=== PATIENT | male | born 1955 | race Caucasian/White ===

== ENCOUNTER → 2019-05-16 14:28 | Outpatient (CLI) | payer OTHER, SELFPAY ==
[2019-05-16 15:02] LABS: Add Manual Diff / Slide Review NO; Basophils Absolute Auto 100 /uL (0-100); Basophils Percent Auto 0.8 % (0-2); Eosinophils Absolute Auto 200 /uL (0-450); Eosinophils Percent Auto 3.4 % (2-4); Hematocrit 41.5 % (41-53); Lymphocytes Absolute Auto 1500 /uL (1100-4500); Lymphocytes Percent Auto 23.4 % (25-40); Mean Corpuscular HGB Conc 33.8 % (30-36); Mean Corpuscular Hemoglobin 30.5 PG (26-34); Mean Corpuscular Volume 90.4 fL (80-100); Monocytes Absolute Auto 300 /uL (0-900); Monocytes Percent Auto 4.8 % (3-14); Neutrophils Absolute Auto 4200 /uL (1500-7000); Neutrophils Percent Auto 67.6 % (50-75); Platelet Count 161 X10^3/uL (150-400); Red Blood Cell Count 4.59 X10^6/uL (4.5-5.9); Red Cell Distribution Width 12.9 % (11.6-14.8); White Blood Cell Count 6.3 X10^3/uL (4.5-11.0)
[2019-05-16 15:56] LABS: Alanine Aminotransferase 21 IU/L (<50); Albumin 4.5 g/dL (3.5-5.0); Albumin Globulin Ratio 1.7 (1.0-2.8); Alkaline Phosphatase 60 U/L (38-126); Aspartate Aminotransferase 22 IU/L (17-59); BUN Creatinine Ratio 12.5 (6-22); Bilirubin Total 0.4 mg/dL (0.2-1.3); Blood Urea Nitrogen 10 mg/dL (9-20); Calcium 9.8 mg/dL (8.4-10.2); Carbon Dioxide 25 mmol/L (22-32); Chloride 105 mmol/L (98-107); Cholesterol 181 mg/dL (140-199); Creatine Kinase 67 U/L (55-170); Estimated Glomerular Filt Rate > 60.0 mL/min (>60); Globulin 2.6 g/dL (1.7-4.1); Glucose 112 mg/dL (80-110); HDL Cholesterol 32 mg/dL (40-60); HEMOLYSIS < 15 (0-50); LDL Cholesterol Calculated 115 mg/dL (<100); Potassium 4.3 mmol/L (3.4-5.1); Sodium 141 mmol/L (137-145); Total Protein 7.1 g/dL (6.3-8.2); Triglycerides 170 mg/dL (35-150)
[2019-05-16 16:13] LABS: Vitamin D 25 Hydroxy (D3) 44.6 ng/mL (30.0-100.0)
[2019-05-16 16:26] LABS: Prostate Specific Antigen Scrn 0.514 ng/mL (0.1-4.0)
[2019-05-16 16:27] LABS: TSH w/ Reflex to FT4 0.94 uIU/mL (0.47-4.68)
== END ==
PROVIDERS: PCP Student in an Organized Health Care Education/Training Program; Visit Provider Student in an Organized Health Care Education/Training Program
DX: Z12.5 Encounter for screening for malignant neoplasm of prostate (principal); E78.2 Mixed hyperlipidemia; I25.10 Atherosclerotic heart disease of native coronary artery without angina pectoris; R53.1 Weakness; E55.9 Vitamin D deficiency, unspecified; Z79.899 Other long term (current) drug therapy
CPT/HCPCS: 36415; 80053; 80061; 82306; 82550; 84443; 85025; G0103

== ENCOUNTER → 2020-03-13 14:37 | Outpatient (CLI) | payer OTHER, SELFPAY ==
[2020-03-13 16:05] LABS: Blood Urea Nitrogen 16 mg/dL (9-20); Calcium 9.8 mg/dL (8.4-10.2); Carbon Dioxide 30 mmol/L (22-32); Chloride 102 mmol/L (98-107); Estimated Glomerular Filt Rate > 60.0 mL/min (>60); Glucose 96 mg/dL (80-110); HEMOLYSIS < 15 (0-50); Potassium 5.1 mmol/L (3.4-5.1); Sodium 139 mmol/L (137-145)
== END ==
PROVIDERS: PCP Student in an Organized Health Care Education/Training Program; Referring Provider Student in an Organized Health Care Education/Training Program; Visit Provider Student in an Organized Health Care Education/Training Program
DX: I10 Essential (primary) hypertension (principal)
CPT/HCPCS: 36415; 80048

== ENCOUNTER → 2020-12-09 09:30 | Outpatient (CLI) | payer OTHER, SELFPAY ==
[2020-12-09 10:11] LABS: BUN Creatinine Ratio 18.9 (6-22); Blood Urea Nitrogen 14 mg/dL (9-20); Calcium 9.9 mg/dL (8.4-10.2); Carbon Dioxide 26 mmol/L (22-32); Chloride 105 mmol/L (98-107); Estimated Glomerular Filt Rate > 60.0 mL/min (>60); Glucose 117 mg/dL (80-110); HEMOLYSIS < 15 (0-50); Potassium 4.4 mmol/L (3.4-5.1); Sodium 138 mmol/L (137-145)
[2020-12-09 10:39] LABS: Prostate Specific Antigen Scrn 0.596 ng/mL (0.1-4.0)
== END ==
PROVIDERS: PCP Student in an Organized Health Care Education/Training Program; Referring Provider Student in an Organized Health Care Education/Training Program; Visit Provider Student in an Organized Health Care Education/Training Program
DX: I10 Essential (primary) hypertension (principal); Z12.5 Encounter for screening for malignant neoplasm of prostate
CPT/HCPCS: 36415; 80048; G0103

== ENCOUNTER → 2021-01-21 08:44 | Outpatient (CLI) | payer OTHER, SELFPAY ==
[2021-01-21 11:46] LABS: COVID19 -Nasal RAPID Negative (Negative)
== END ==
PROVIDERS: PCP Student in an Organized Health Care Education/Training Program; Referring Provider Specialist; Visit Provider Specialist
DX: Z01.812 Encounter for preprocedural laboratory examination (principal); Z20.822 Contact with and (suspected) exposure to COVID-19
CPT/HCPCS: 87635; C9803

== ENCOUNTER 2021-01-22 08:43 | Day surgery (SDC) | payer OTHER, SELFPAY ==
[2021-01-22] MEDS: LACTATED RINGERS 1,000 ML 200 ML IV (09:00)
[2021-01-22 09:33] VITALS: BP 156/95; PULSE 58; RESP 20; TEMP 36.4; O2SAT 98; BMI 33.9
--- NOTE | 2021-01-22 10:08 | PM.HP.1 ---
History of Present Illness History of Present Illness Chief complaint: [facility] [place] Narrative: Patient is a gentleman here for screening colonoscopy. His last exam was about 10 years ago. Patient History Medical History Cataracts, bilateral (~2014) Decreased financial planning analyst strength Depression (~1987) Hearing loss Hypertension (~1992) Osteoarthritis (~1974) Sleep apnea (~2017) Vision disorder Surgical History Anesthesia History of knee replacement (~1994) Status post appendectomy (~2017) Status post double vessel coronary artery bypass (~1992) Family & Social History Family History Father Hypertension Grandmother Heart disease Mother Hypertension Mental health problem Grandmother Heart disease Sister Age: 54 Hypertension Sister Diabetes mellitus Mental health problem Social History: household members spouse Tobacco & Substance use: Smoking Status Former smoker alcohol intake frequency 0-2 drinks per day Substance Use Type marijuana Meds Home Medications and Allergies Home Medications Medication Instructions Recorded Confirmed Type aspirin 325 mg tablet 325 mg PO DAILY 03/13/20 01/22/21 History lisinopril 20 mg tablet 20 mg PO DAILY #90 tab 04/02/20 01/22/21 Rx metoprolol tartrate 100 mg tablet 100 mg PO BID #180 tab 04/14/20 01/22/21 Rx simvastatin 20 mg tablet 20 mg PO BEDTIME #90 tab 04/14/20 01/22/21 Rx sertraline 100 mg tablet 100 mg PO DAILY #90 tab 11/10/20 01/22/21 Rx Allergies Allergy/AdvReac Type Severity Reaction Status Date / Time No Known Drug Allergies Allergy Unverified 12/09/20 09:08 Review of Systems Review of Systems Narrative: Patient has a history of angina but since his operation in 1992 that has ceased. He had a heart attack at that time but nothing since. He has no cough cold or asthma. He has no black or bloody bowel movements. No seizures or blackouts. Exam Vital Signs (past 8 hours): - 01/22/21 09:33 Temperature 97.6 F Pulse Rate 58 L Respiratory Rate 20 Blood Pressure 156/95 H Pulse Oximetry 98 Oxygen Delivery Method Room Air Narrative Exam Narrative: Pleasant cooperative patient no apparent distress. Lungs are clear to auscultation. No rales or rhonchi. Heart regular rate and rhythm no murmur gallop. Abdomen is soft nontender without mass. No obvious hernias. Patient is alert and oriented x3. Assessment & Plan Assessment and plan (1) Screening for colon cancer: Status: Acute Assessment & Plan narrative: Patient is here for screening exam. I have discussed the procedure and the rationale with the patient including risks of bleeding, perforation which would necessitate a major operation, failure to find remove all lesions and the potential to tattoo. He appeared to understand and wished to proceed. Time Spent With Patient Critical Care time: I spent a total of [] minutes of critical care time on this patient's care today; this time is exclusive of procedural time.
--- NOTE | 2021-01-22 10:11 | PM.PREOP ---
Pre-operative Note COVID-19 COVID-19 status: Negative Result date/Date tested (Pos, Neg/Pending): 01/21/21 Interval Note History & Physical reviewed/Exam performed by Physician: Yes Changes to H&P: No ASA Class (for procedural sedation): II
--- NOTE | 2021-01-22 11:13 | PM.OP.ENDO ---
Operative Date/Time/Diagnoses Date of procedure: 01/22/21 Time of procedure: 11:14 Pre-op diagnosis: Screening examination. Last exam about 10 years ago. Post-op diagnosis: same Procedure & Clinicians Study performed: Colonoscopy Same procedure as scheduled: Yes Indications: Screening for colon cancer Surgeon: Markie Breen Procedure Notes SCOAP/Timeout: Performed Procedure in detail: The patient was placed in the left lateral decubitus position and underwent IV sedation directed by the surgeon consisting of fentanyl and Versed. Digital exam was unremarkable. Prostate normal in size. I did feel any masses. The scope was inserted and advanced through the rectum into the sigmoid, descending, transverse, and ascending colon. Patient had sigmoid diverticulosis. The cecum was reached identified by the ileocecal valve and the appendiceal opening. The ileocecal valve was successfully cannulated. The terminal ileum was normal in appearance. The scope was gradually brought out. No Polyps were found. The scope ultimately was retroflexed in the rectum. The appearance was normal in appearance except for some small internal hemorrhoids. The scope was removed and the patient tolerated the procedure well. The prep was good. Scope withdrawal time: Timer not working Sedation minutes: 22 Findings: diverticulosis Specimen(s): none sent Complications: none Post-procedure Recommendations: Colonscopy in 10 years Follow up: as needed Disposition: PACU
[2021-01-22] MEDS: MIDAZOLAM 5 MG/5 ML VIAL IV (11:14)
[2021-01-22] MEDS: fentaNYL 250 MCG/5 ML INJ IV (11:15)
[2021-01-22 11:18] VITALS: BP 148/81; PULSE 62; RESP 10; TEMP 36; O2SAT 95
[2021-01-22 11:22] VITALS: BP 132/79; PULSE 57; RESP 97; O2SAT 16
[2021-01-22 11:27] VITALS: BP 121/81; PULSE 55; RESP 12; TEMP 36.1; O2SAT 98
[2021-01-22 11:41] VITALS: BP 129/82; PULSE 63; RESP 16; TEMP 36.4; O2SAT 96
--- NOTE | 2021-01-22 15:02 | SUR.PHASEII ---
Late entry: Pt left when ready and left in stable condition.
== END 2021-01-22 11:55 | disposition home or self-care (01) ==
PROVIDERS: PCP Student in an Organized Health Care Education/Training Program; Referring Provider Specialist; Visit Provider Specialist
PROC: 0DJD8ZZ Inspection of Lower Intestinal Tract, Via Natural or Artificial Opening Endoscopic (ICD-10-PCS; CPT 45378; principal; 2021-01-22 10:00)
DX: Z12.11 Encounter for screening for malignant neoplasm of colon (principal); K57.30 Diverticulosis of large intestine without perforation or abscess without bleeding
CPT/HCPCS: 45378; 99152; J2250; J3010

== ENCOUNTER → 2021-09-09 12:46 | Outpatient (CLI) | payer MEDICARE, OTHER, SELFPAY ==
[2021-09-09 14:10] LABS: BUN Creatinine Ratio 10.1 (6-22); Blood Urea Nitrogen 9 mg/dL (9-20); Calcium 9.7 mg/dL (8.4-10.2); Carbon Dioxide 33 mmol/L (22-32); Chloride 101 mmol/L (98-107); Estimated Glomerular Filt Rate > 60 mL/min (>60); Glucose 115 mg/dL (80-110); HEMOLYSIS < 15 (0-50); Potassium 4.6 mmol/L (3.4-5.1); Sodium 139 mmol/L (137-145)
== END ==
PROVIDERS: PCP Student in an Organized Health Care Education/Training Program; Referring Provider Student in an Organized Health Care Education/Training Program; Visit Provider Student in an Organized Health Care Education/Training Program
DX: I10 Essential (primary) hypertension (principal)
CPT/HCPCS: 36415; 80048

== ENCOUNTER → 2022-04-08 11:11 | Outpatient (CLI) | payer MEDICARE, SELFPAY ==
[2022-04-08 12:47] LABS: Add Manual Diff / Slide Review NO; Basophils Absolute Auto 100 /uL (0-100); Basophils Percent Auto 0.7 % (0-2); Eosinophils Absolute Auto 300 /uL (0-450); Eosinophils Percent Auto 4.4 % (2-4); Hematocrit 40.6 % (41-53); Hemoglobin 13.6 g/dL (13.5-17.5); Lymphocytes Absolute Auto 1700 /uL (1100-4500); Mean Corpuscular HGB Conc 33.6 % (30-36); Mean Corpuscular Hemoglobin 31.1 PG (26-34); Mean Corpuscular Volume 92.7 fL (80-100); Monocytes Absolute Auto 600 /uL (0-900); Monocytes Percent Auto 7.2 % (3-14); Neutrophils Absolute Auto 5100 /uL (1500-7000); Neutrophils Percent Auto 65.7 % (50-75); Platelet Count 173 X10^3/uL (150-400); Red Blood Cell Count 4.38 X10^6/uL (4.5-5.9); Red Cell Distribution Width 12.7 % (11.6-14.8); White Blood Cell Count 7.7 X10^3/uL (4.5-11.0)
[2022-04-08 12:59] LABS: Hemoglobin A1C% w Est Avg Glu 5.4 % (4.0-6.0)
[2022-04-08 13:12] LABS: Alanine Aminotransferase 18 IU/L (<50); Albumin 4.4 g/dL (3.5-5.0); Albumin Globulin Ratio 1.6 (1.0-2.8); Alkaline Phosphatase 63 U/L (38-126); Aspartate Aminotransferase 20 IU/L (17-59); BUN Creatinine Ratio 16.1 (6-22); Bilirubin Total 0.7 mg/dL (0.2-1.3); Blood Urea Nitrogen 14 mg/dL (9-20); Calcium 9.5 mg/dL (8.4-10.2); Carbon Dioxide 28 mmol/L (22-32); Chloride 101 mmol/L (98-107); Cholesterol 146 mg/dL (140-199); Estimated Glomerular Filt Rate > 60 mL/min (>60); Globulin 2.7 g/dL (1.7-4.1); Glucose 103 mg/dL (80-110); HDL Cholesterol 33 mg/dL (40-60); HEMOLYSIS < 15 (0-50); LDL Cholesterol Calculated 91 mg/dL (<100); Potassium 5.1 mmol/L (3.4-5.1); Sodium 140 mmol/L (137-145); Total Protein 7.1 g/dL (6.3-8.2); Triglycerides 110 mg/dL (35-150)
[2022-04-08 13:44] LABS: TSH w/ Reflex to FT4 1.25 uIU/mL (0.47-4.68)
[2022-04-08 14:01] LABS: Vitamin B12 548 pg/mL (239-931)
== END ==
PROVIDERS: PCP Family Medicine; Referring Provider Family Medicine; Visit Provider Family Medicine
DX: F32.5 Major depressive disorder, single episode, in full remission (principal); I25.10 Atherosclerotic heart disease of native coronary artery without angina pectoris; I10 Essential (primary) hypertension; E78.2 Mixed hyperlipidemia; G47.30 Sleep apnea, unspecified
CPT/HCPCS: 36415; 80053; 80061; 82607; 83036; 84443; 85025

== ENCOUNTER → 2022-09-07 06:37 | Outpatient (CLI) | payer MEDICARE, SELFPAY ==
--- NOTE | 2022-09-07 06:39 | DI.US.S_ITS ---
PROCEDURE: US ARTERIAL DUPLEX LE BI INDICATIONS: COLD, PAINFUL FEET TECHNIQUE: Color and pulse Doppler interrogation was performed of both lower extremity arterial systems, with image documentation. COMPARISON: None. FINDINGS: Right lower extremity: Common femoral artery: 82 cm/sec, with biphasic flow. Deep femoral artery: 143 cm/sec, with biphasic flow. Proximal superficial femoral artery: 83 cm/sec, with biphasic flow. Mid superficial femoral artery: 96 cm/sec, with biphasic flow. Distal superficial femoral artery: 55 cm/sec, with by phase flow. Popliteal artery: 60 cm/sec, with biphasic flow. Posterior tibial artery: 51 cm/sec, with biphasic flow. Anterior tibial artery/dorsalis pedis: 28 cm/sec, with biphasic flow. Madrigal-scale imaging description: No focal hemodynamically significant stenosis. Left lower extremity: Common femoral artery: 120 cm/sec, with triphasic flow. Deep femoral artery: 48 cm/sec, with monophasic flow. Proximal superficial femoral artery: 62 cm/sec, with triphasic flow. Mid superficial femoral artery: 91 cm/sec, with triphasic flow. Distal superficial femoral artery: 60 cm/sec, with triphasic flow. Popliteal artery: 50 cm/sec, with biphasic flow. Posterior tibial artery: 65 cm/sec, with biphasic flow. Anterior tibial artery/dorsalis pedis: 20 cm/sec, with biphasic flow. Madrigal-scale imaging description: No focal hemodynamically significant stenosis. IMPRESSION: No focal hemodynamically significant stenosis of the bilateral lower extremities. Dictated by: Dior Martinez M.D. on 09/07/2022 at 9:45 Approved by: Dior Martinez M.D. on 09/07/2022 at 9:49
== END ==
PROVIDERS: PCP Family Medicine; Referring Provider Family Medicine; Visit Provider Family Medicine
DX: I73.9 Peripheral vascular disease, unspecified (principal); I10 Essential (primary) hypertension
CPT/HCPCS: 93925

== ENCOUNTER → 2023-12-19 07:13 | Outpatient (CLI) | payer OTHER, SELFPAY ==
--- NOTE | 2023-12-19 07:17 | DI.ECHO.S_ITS ---
[place] [facility]+ [facility] : : [address] : : [place] : : [id number] : : Phone: [phone] Echocardiogram Report + + :Name: RAIZA PEARSON Study Date: 12/19/2023 Height: 66 in : :[facility] ReadingLocation: Weight: 195 lb : : Gender: Male BSA: 2.0 m2 : :: 1955 Age: 68 yrs BP: 134/69 mmHg: :Reason For Study: CAD, MURMUR : :Ordering Physician: KACIE, : :CAMERON Performed By: Olaf Mas : :Referring: [email or web address] : + + Interpretation Summary 1. The left ventricular contractility is borderline. Estimated ejection fraction is 50 to 55% with no segmental wall motion abnormalities. No LVH. Normal diastolic function. 2. The right ventricular contractility is normal. 3. The left atrium is mildly dilated. All other cardiac chambers are of normal size. 4. Moderate to severe mitral regurgitation is noted. However, quantitative measurements suggest severe regurgitation. 5. No obvious intracardiac shunts. 6. No obvious intracardiac masses nor thrombi. 7. No hemodynamically significant pericardial effusion. 8. No echocardiographic evidence of elevated right-sided filling pressures. Conclusion: Low normal left ventricular systolic function with at least moderate to severe mitral regurgitation. Procedure: A two-dimensional transthoracic echocardiogram with color flow and Doppler was performed. The study quality was technically adequate. There is no prior echocardiogram noted for this patient. The patient was in sinus rhythm with heart rates between 52-61 bpm during the exam. Left Ventricle: The left ventricle is normal in size and wall thickness. The ejection fraction is estimated to be 50-55%. Right Ventricle: The right ventricle is normal size. The right ventricular systolic function is normal. Atria: The left atrium is mildly dilated. Right atrial size is normal. The interatrial septum grossly appears intact with no obvious evidence for an atrial septal defect. Mitral Valve: The mitral valve is normal. There is no mitral valve stenosis. There is moderate to severe mitral regurgitation. Aortic Valve: The aortic valve is trileaflet. There is no aortic valve stenosis. No aortic regurgitation is present. Tricuspid Valve: The tricuspid valve is normal. There is no tricuspid stenosis. There is mild tricuspid regurgitation. The right ventricular systolic pressure is estimated to be at least 33 mmHg based on an estimated right atrial pressure of 3 mm Hg. Pulmonic Valve: The pulmonic valve is not well seen, but is grossly normal. There is no pulmonic valvular stenosis. There is trace pulmonic regurgitation. Great Vessels: The aortic root is normal size. The ascending aorta could not be visualized. The IVC is of normal diameter and collapses greater than 50% with a sniff. This suggests a low right atrial pressure of 3 mm Hg. Pericardium/ Pleura There is no pericardial effusion. There is no pleural effusion. MMode/2D Measurements & Calculations LVIDd: 5.9 cm LVOT diam: 2.3 cm LVIDs: 4.1 cm Ao root diam: 3.4 cm FS: 30.8 % Ao Arch Diam (Prox Trans): 2.6 cm IVSd: 0.93 cm LVPWd: 0.87 cm LV farfan. diameter/BSA (cm/m^2): 3.0 LV sys. diameter/BSA (cm/m^2): 2.1 LA A2 area: 23.3 cm2 RA long axis: 4.5 cm LA A4 area: 22.3 cm2 RA area: 10.8 cm2 LA length (vol): 5.7 cm RA vol: 22.3 ml LA vol: 76.7 ml RA : 11.3 ml/m2 LA vol index: 38.8 ml/m2 IVC diam: 1.8 cm RVD1 (basal): 3.9 cm RVD2 (mid): 3.8 cm TAPSE: 2.2 cm Doppler Measurements & Calculations Ao V2 max: 123.2 cm/sec LVOT Max Edgard: 103.7 cm/sec Ao V2 mean: 78.5 cm/sec LV V1 max P.3 mmHg Ao max P.1 mmHg LV V1 VTI: 29.6 cm Ao mean P.9 mmHg ROCHELLE(I,D): 4.8 cm2 Ao V2 VTI: 26.0 cm ROCHELLE(V,D): 3.5 cm2 sev ratio: 1.1 ROCHELLE indexed to BSA (cm^2/m^2): 2.4 MV E max edgard: 108.1 cm/sec TR max edgard: 273.7 cm/sec MV A max edgard: 91.2 cm/sec TR max P.0 mmHg MV E/A: 1.2 PA V2 max: 96.5 cm/sec Med Peak E' Edgard: 6.8 cm/sec PA V2 mean: 65.4 cm/sec E/E' med: 15.8 PA mean P.9 mmHg Lat Peak E' Edgard: 8.8 cm/sec PA pr(Accel): 20.8 mmHg E/E' lat: 12.3 E/e' average: 14.0 MV dec time: 0.30 sec MR ERO: 0.44 cm2 MR PISA: 7.0 cm2 SV(LVOT): 124.4 ml MR flow rate: 257.3 cm3/sec MR PISA radius: 1.1 cm Reading Physician:
== END ==
PROVIDERS: PCP Family Medicine; Referring Provider Internal Medicine; Visit Provider Internal Medicine
DX: I08.1 Rheumatic disorders of both mitral and tricuspid valves (principal); R01.1 Cardiac murmur, unspecified
CPT/HCPCS: 93306

== ENCOUNTER → 2024-06-21 14:14 | Outpatient (CLI) | payer MEDICARE, SELFPAY ==
[2024-06-21 14:47] LABS: Add Manual Diff / Slide Review NO; Basophils Absolute Auto 100 /uL (0-100); Basophils Percent Auto 1.3 % (0-2); Eosinophils Absolute Auto 300 /uL (0-450); Hematocrit 41.7 % (41-53); Hemoglobin 14.3 g/dL (13.5-17.5); Lymphocytes Absolute Auto 2100 /uL (1100-4500); Lymphocytes Percent Auto 20.1 % (25-40); Mean Corpuscular HGB Conc 34.2 % (30-36); Mean Corpuscular Volume 90.5 fL (80-100); Monocytes Absolute Auto 600 /uL (0-900); Monocytes Percent Auto 5.6 % (3-14); Neutrophils Absolute Auto 7200 /uL (1500-7000); Platelet Count 171 X10^3/uL (150-400); Red Blood Cell Count 4.61 X10^6/uL (4.5-5.9); Red Cell Distribution Width 13.3 % (11.6-14.8); White Blood Cell Count 10.3 X10^3/uL (4.5-11.0)
--- NOTE | 2024-06-21 14:58 | EKG_ITS ---
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
[2024-06-21 15:00] LABS: Hemoglobin A1C% w Est Avg Glu 5.2 % (4.0-6.0)
[2024-06-21 15:26] LABS: BUN Creatinine Ratio 15.3 (6-22); Blood Urea Nitrogen 15 mg/dL (9-20); Calcium 9.8 mg/dL (8.4-10.2); Carbon Dioxide 25 mmol/L (22-32); Chloride 102 mmol/L (98-107); Estimated Glomerular Filt Rate > 60 mL/min (>60); Glucose 99 mg/dL (80-110); HEMOLYSIS < 15 (0-50); Potassium 4.2 mmol/L (3.4-5.1); Sodium 138 mmol/L (137-145)
== END ==
LOC: RESP 14:15
PROVIDERS: PCP Internal Medicine; Referring Provider Orthopaedic Surgery Foot and Ankle Surgery; Visit Provider Orthopaedic Surgery Foot and Ankle Surgery
DX: Z01.818 Encounter for other preprocedural examination (principal); R73.9 Hyperglycemia, unspecified; Z01.812 Encounter for preprocedural laboratory examination
CPT/HCPCS: 36415; 80048; 83036; 85025; 93005

== ENCOUNTER → 2024-12-20 14:57 | Outpatient (CLI) | payer OTHER, SELFPAY ==
--- NOTE | 2024-12-20 14:58 | DI.ECHO.S_ITS ---
[place] [facility]---------+ [facility] : : [address] : : [place] : : [id number] : : Phone: [phone] Echocardiogram Report + + :Name: RAIZA PEARSON Study Date: 12/20/2024 Height: 66 in : :[facility] ReadingLocation: Weight: 210 lb : : Gender: Male BSA: 2.0 m2 : :: 1955 Age: 69 yrs BP: 117/67 mmHg: :Reason For Study: HEART CONDITION : :Ordering Physician: BRAXTON, : :LEE Performed By: Olaf Mas : :Referring: LEE LIMON : + + Interpretation Summary The ejection fraction is estimated to be 55-60%. Diastolic parameters suggest probable normal left ventricular diastolic function and normal filling pressures. Visually the left atrium appears mildly dilated. The right ventricle is normal in size and function. There is moderate mitral regurgitation. There is mild tricuspid regurgitation. The right ventricular systolic pressure is estimated to be at least 28 mmHg based on an estimated right atrial pressure of 3 mm Hg. Compared to the prior study 12/19/2023, it appears that the severity of mitral regurgitation has decreased. Procedure: A two-dimensional transthoracic echocardiogram with color flow and Doppler was performed. The study quality was technically good. Comparison is made with the echocardiogram of 12/19/2023. The patient was in normal sinus rhythm during the exam. Left Ventricle: The left ventricle is normal in size. There is normal left ventricular wall thickness. There is no ventricular septal defect visualized. The ejection fraction is estimated to be 55-60%. There are no focal wall motion abnormalities. Diastolic parameters suggest probable normal left ventricular diastolic function and normal filling pressures. Right Ventricle: The right ventricle is normal in size and function. Atria: Visually the left atrium appears mildly dilated. Right atrial size is normal. There is no Doppler evidence for an interatrial shunt. Mitral Valve: The mitral valve leaflets appear normal. There is no evidence of stenosis, fluttering, or prolapse. There is moderate mitral regurgitation. Aortic Valve: The aortic valve is trileaflet. The aortic valve opens well. There is no aortic valve stenosis. No aortic regurgitation is present. Tricuspid Valve: The tricuspid valve leaflets are thin and pliable. There is mild tricuspid regurgitation. The right ventricular systolic pressure is estimated to be at least 28 mmHg based on an estimated right atrial pressure of 3 mm Hg. Pulmonic Valve: The pulmonic valve leaflets are thin and pliable; valve motion is normal. There is no pulmonic valvular regurgitation. Great Vessels: The aortic root is mildly dilated. The dimensions of the ascending aorta are normal. The pulmonary artery is normal size. The IVC is of normal diameter and collapses greater than 50% with a sniff. This suggests a low right atrial pressure of 3 mm Hg. Pericardium/ Pleura There is no pericardial effusion. There is no pleural effusion. MMode/2D Measurements & Calculations LVIDd: 5.7 cm LVOT diam: 2.2 cm LVIDs: 4.0 cm Ao root diam: 3.7 cm FS: 30.2 % asc Aorta Diam: 3.6 cm EPSS: 0.90 cm IVSd: 0.86 cm LVPWd: 1.1 cm LV farfan. diameter/BSA (cm/m^2): 2.8 LV sys. diameter/BSA (cm/m^2): 1.9 LA A2 area: 20.5 cm2 RA long axis: 4.7 cm LA A4 area: 25.0 cm2 RA area: 13.4 cm2 LA length (vol): 6.6 cm RA vol: 32.1 ml LA vol: 66.2 ml RA : 15.7 ml/m2 LA vol index: 32.4 ml/m2 IVC diam: 1.6 cm RVD1 (basal): 3.9 cm RVD2 (mid): 3.8 cm TAPSE: 2.2 cm Doppler Measurements & Calculations Ao V2 max: 141.4 cm/sec LVOT Max Edgard: 120.6 cm/sec Ao V2 mean: 93.4 cm/sec LV V1 max P.8 mmHg Ao max P.0 mmHg LV V1 VTI: 26.3 cm Ao mean P.0 mmHg ROCHELLE(I,D): 3.5 cm2 Ao V2 VTI: 27.4 cm ROCHELLE(V,D): 3.1 cm2 sev ratio: 0.96 ROCHELLE indexed to BSA (cm^2/m^2): 1.7 MV E max edgard: 96.3 cm/sec TR max edgard: 261.7 cm/sec MV A max edgard: 86.1 cm/sec TR max P.5 mmHg MV E/A: 1.1 PA V2 max: 108.0 cm/sec Med Peak E' Edgard: 6.1 cm/sec PA V2 mean: 75.0 cm/sec E/E' med: 15.8 PA mean P.5 mmHg Lat Peak E' Edgard: 10.3 cm/sec PA pr(Accel): 49.9 mmHg E/E' lat: 9.4 E/e' average: 12.6 MV dec time: 0.22 sec MR ERO: 0.29 cm2 MR PISA: 4.7 cm2 SV(LVOT): 95.7 ml MR flow rate: 172.3 cm3/sec MR PISA radius: 0.86 cm Reading Physician:04:14 PM
== END ==
LOC: ECHO 14:58
PROVIDERS: PCP Internal Medicine; Referring Provider Orthopaedic Surgery; Visit Provider Orthopaedic Surgery
DX: I51.9 Heart disease, unspecified (principal); I34.0 Nonrheumatic mitral (valve) insufficiency; I07.1 Rheumatic tricuspid insufficiency
CPT/HCPCS: 93306